=== PATIENT | female | born 1945 | race Hispanic/Latino ===

== ENCOUNTER 2017-12-06 21:48 | Emergency (ER) | payer MEDICARE ==
[~2017-12-06 21:48] MED LIST: CALC600T12 PO; ESOM20CA31 PO; FENO54TA6 PO; GABA-531 PO; HYDR-4068 PO; LISI40TA4 PO; LORA0.5T2 PO; LORA10TA7 PO; LOVA40TA2 PO; MELO-108 PO; OXYB10TA PO; ROPI1TAB11 PO
[2017-12-06] MEDS ORDERED: DIPHENHYDRAMINE HCL 25 MG CAPSULE ONE (22:07)
[2017-12-06] MEDS ORDERED: ACETAMINOPHEN 325 MG TAB ONE (22:07)
== END 2017-12-06 23:55 | disposition home or self-care (01) ==
LOC: EDH 21:48
DX: T80.62XA Other serum reaction due to vaccination, initial encounter (principal); F41.9 Anxiety disorder, unspecified; E78.5 Hyperlipidemia, unspecified; I10 Essential (primary) hypertension; E11.9 Type 2 diabetes mellitus without complications; Z88.0 Allergy status to penicillin; Z90.49 Acquired absence of other specified parts of digestive tract; Y92.89 Other specified places as the place of occurrence of the external cause
CPT/HCPCS: 99283; Q0163

== ENCOUNTER 2017-12-30 18:04 | Inpatient (IN) | payer MEDICARE ==
[~2017-12-30] VITALS: Ht 152.4 cm; Wt 75.1 kg
[2017-12-30 19:25] LABS: BASOPHILS % (AUTO) 0.5 % (0.0-5.0); EOSINOPHILS % (AUTO) 1.7 % (0.0-8.0); LYMPHOCYTES % (AUTO) 27.1 % (21.0-51.0); MEAN CORPUSCULAR HEMOGLOBIN 31.2 pg (27.0-33.0); MEAN CORPUSCULAR HGB CONC 33.3 g/dL (32.0-36.0); MEAN CORPUSCULAR VOLUME 93.6 fL (79-99); NEUTROPHILS % (AUTO) 63.7 % (40.0-77.0); PLATELET COUNT (AUTO) 309 K/uL (130-400); RED BLOOD CELL COUNT(AUTO) 4.16 MIL/uL (4.00-5.50); RED CELL DISTRIBUTION WIDTH 13.5 % (11.0-15.5); WHITE BLOOD COUNT (AUTO) 7.9 K/uL (4.8-10.8)
[2017-12-30 19:40] LABS: CREATININE 0.7 mg/dL (0.5-1.5); POTASSIUM 4.1 mmol/L (3.5-5.1)
[2017-12-30 19:41] LABS: INR 0.95 (0.85-1.15); PARTIAL THROMBOPLASTIN TIME 25.7 SEC (26.3-35.5)
[2017-12-30 19:54] LABS: ALBUMIN 3.9 g/dL (3.5-5.0); BILIRUBIN,TOTAL 0.2 mg/dL (0.2-1.0); TOTAL PROTEIN, SERUM 8.2 g/dL (6.0-8.3)
[2017-12-30] MEDS ORDERED: KETOROLAC TROMETHAMINE 15MG/ML ONE (20:33)
[2017-12-30] MEDS ORDERED: MECLIZINE HCL 25 MG TABLET ONE (21:06)
[2017-12-30 22:10] VITALS: BP 132/85
[2017-12-30] MEDS ORDERED: GLUCAGON 1MG KIT 1 MG ML IM PRN (22:30)
[2017-12-30] MEDS ORDERED: POTASSIUM CHLORIDE 20 MEQ ERTAB PO PRN (22:30)
[2017-12-30] MEDS ORDERED: POTASSIUM CHLORIDE 10% ELIXIR 20 MEQ/15 ML UDCUP PO PRN (22:30)
[2017-12-30] MEDS ORDERED: DEXTROSE 50%-WATER 50 ML DISP.SYRIN IV PRN (22:30)
[2017-12-30] MEDS ORDERED: LIDOCAINE HCL-MPF 1% 2ML VIAL IVP PRN (22:30)
[2017-12-30] MEDS ORDERED: POTASSIUM CHLORIDE 20MEQ/100ML 100 ML IV PRN (22:30)
[2017-12-30] MEDS: SODIUM CHLORIDE 0.9% 1000ML 1,000 ML IV SCH (22:41)
[2017-12-30] MEDS: ENOXAPARIN SODIUM 40 MG/0.4 ML SYRINGE SQ SCH (22:41)
[2017-12-31] VITALS (8 sets, daily range): BP systolic 107–152; BP diastolic 65–98
[2017-12-31] MEDS ORDERED: LORAZEPAM 0.5 MG TABLET ONE (03:09)
[2017-12-31] MEDS ORDERED: LORAZEPAM 0.5 MG TABLET PO PRN (03:15)
[2017-12-31] MEDS ORDERED: HYDROCODONE/ACETAMINOPHEN 10/325 MG TAB ONE (04:40)
[2017-12-31] MEDS: INSULIN HUMULIN R 100 UNIT/ML 3ML SQ SCH ×4 (06:13→21:00)
[2017-12-31 06:44] LABS: BASOPHILS % (AUTO) 0.6 % (0.0-5.0); EOSINOPHILS % (AUTO) 2.4 % (0.0-8.0); HEMATOCRIT 32.6 % (36-48); LYMPHOCYTES % (AUTO) 36.2 % (21.0-51.0); MEAN CORPUSCULAR HEMOGLOBIN 31.3 pg (27.0-33.0); MEAN CORPUSCULAR HGB CONC 33.2 g/dL (32.0-36.0); MEAN CORPUSCULAR VOLUME 94.3 fL (79-99); MONOCYTES % (AUTO) 9.5 % (3.0-13.0); NEUTROPHILS % (AUTO) 51.3 % (40.0-77.0); PLATELET COUNT (AUTO) 247 K/uL (130-400); RED BLOOD CELL COUNT(AUTO) 3.46 MIL/uL (4.00-5.50); RED CELL DISTRIBUTION WIDTH 13.2 % (11.0-15.5); WHITE BLOOD COUNT (AUTO) 7.2 K/uL (4.8-10.8)
[2017-12-31 07:07] LABS: CARBON DIOXIDE 24 mmol/L (21-32); CHLORIDE 108 mmol/L (101-111); CREATINE KINASE MB 0.7 ng/mL (0.5-3.6); CREATINE KINASE, TOTAL 70 U/L (21-232); CREATININE 0.7 mg/dL (0.5-1.5); GLOMERULAR FILTR. RATE CALC 88 mL/min (>60); GLUCOSE,RANDOM 102 mg/dL (70-105); MYOGLOBIN 23 ng/mL (10-92); POTASSIUM 3.5 mmol/L (3.5-5.1); SODIUM SERUM 141 mmol/L (136-145); TROPONIN I < 0.04 ng/mL (0.00-0.06); UREA NITROGEN, BLOOD 15 mg/dL (7-18)
[2017-12-31] MEDS: FENOFIBRATE 54 MG PO SCH (09:00)
[2017-12-31] MEDS: CALCIUM 600 + VITAMIN D 400 TABLET PO SCH ×2 (09:00→21:08)
[2017-12-31] MEDS: ATORVASTATIN CALCIUM 20 MG TABLET PO SCH (12:28)
[2017-12-31] MEDS: HYDROCODONE/ACETAMINOPHEN 10/325 MG TAB PO PRN ×2 (12:28→21:09)
[2017-12-31] MEDS: LISINOPRIL 40 MG TABLET PO SCH (12:29)
[2017-12-31] MEDS: MELOXICAM 7.5 MG TABLET PO SCH (12:29)
[2017-12-31] MEDS: OXYBUTYNIN 5 MG TAB.SR.24H PO SCH (12:29)
[2017-12-31] MEDS: LORATADINE 10 MG TABLET PO SCH (12:29)
[2017-12-31] MEDS: MECLIZINE HCL 25 MG TABLET PO SCH (12:30)
[2017-12-31] MEDS: FAMOTIDINE 20MG TAB 20 MG TAB PO SCH (12:30)
[2017-12-31] MEDS: ENOXAPARIN SODIUM 40 MG/0.4 ML SYRINGE SQ SCH (12:32)
[2017-12-31] MEDS: SODIUM CHLORIDE 0.9% 1000ML 1,000 ML IV SCH (12:37)
[2017-12-31] MEDS: ROPINIROLE HCL 1 MG TABLET PO SCH ×3 (12:37→21:09)
[2017-12-31] MEDS: GABAPENTIN 300 MG CAPSULE PO SCH ×3 (12:40→21:09)
[2017-12-31 16:23] LABS: APPEARANCE,URINE Clear (CLEAR); BILIRUBIN,URINE Negative (NEGATIVE); COLOR,URINE Yellow (YELLOW); GLUCOSE, URINE (UA) Negative (NEGATIVE); KETONES,URINE Negative (NEGATIVE); LEUKOCYTE ESTERASE ,URINE Negative (NEGATIVE); NITRATE,URINE Negative (NEGATIVE); OCCULT BLOOD,URINE Small (NEGATIVE); PH,URINE 5.5 (5.0-8.0); PROTEIN,URINE Negative (NEGATIVE); UROBILINOGEN,URINE 0.2 mg/dL (0.2-1.0)
[2017-12-31 16:36] LABS: BACTERIA,URINE Rare /HPF (None Seen); SQUAMOUS EPITHELIAL CELL,UR Rare /HPF (0-2); WBC,URINE 0-1 /HPF (0-1)
[2018-01-01] VITALS (7 sets, daily range): BP systolic 113–151; BP diastolic 69–92
[2018-01-01 04:14] LABS: HEMATOCRIT 31.8 % (36-48); MEAN CORPUSCULAR HEMOGLOBIN 32.2 pg (27.0-33.0); MEAN CORPUSCULAR HGB CONC 34.1 g/dL (32.0-36.0); MEAN CORPUSCULAR VOLUME 94.4 fL (79-99); PLATELET COUNT (AUTO) 234 K/uL (130-400); RED BLOOD CELL COUNT(AUTO) 3.37 MIL/uL (4.00-5.50); RED CELL DISTRIBUTION WIDTH 13.1 % (11.0-15.5); WHITE BLOOD COUNT (AUTO) 5.3 K/uL (4.8-10.8)
[2018-01-01] MEDS: INSULIN HUMULIN R 100 UNIT/ML 3ML SQ SCH ×2 (06:08→11:30)
[2018-01-01] MEDS: FENOFIBRATE 54 MG PO SCH (09:00)
[2018-01-01] MEDS ORDERED: BISACODYL 10 MG SUPP.RECT RC SCH (09:15)
[2018-01-01] MEDS: ATORVASTATIN CALCIUM 20 MG TABLET PO SCH (11:35)
[2018-01-01] MEDS: LORATADINE 10 MG TABLET PO SCH (11:35)
[2018-01-01] MEDS: MECLIZINE HCL 25 MG TABLET PO SCH (11:35)
[2018-01-01] MEDS: CALCIUM 600 + VITAMIN D 400 TABLET PO SCH (11:35)
[2018-01-01] MEDS: MELOXICAM 7.5 MG TABLET PO SCH (11:36)
[2018-01-01] MEDS: ROPINIROLE HCL 1 MG TABLET PO SCH ×2 (11:36→13:59)
[2018-01-01] MEDS: LISINOPRIL 40 MG TABLET PO SCH (11:38)
[2018-01-01] MEDS: GABAPENTIN 300 MG CAPSULE PO SCH ×2 (11:39→13:58)
[2018-01-01] MEDS: FAMOTIDINE 20MG TAB 20 MG TAB PO SCH (11:43)
[2018-01-01] MEDS: OXYBUTYNIN 5 MG TAB.SR.24H PO SCH (11:44)
[2018-01-01] MEDS: ENOXAPARIN SODIUM 40 MG/0.4 ML SYRINGE SQ SCH (11:46)
[2018-01-01] MEDS: HYDROCODONE/ACETAMINOPHEN 10/325 MG TAB PO PRN (13:59)
[2018-01-07] MEDS ORDERED: INSULIN HUMULIN R 100 UNIT/ML 3ML ONE (23:38)
[2018-01-07] MEDS ORDERED: DEXTROSE 5%-LACTATED RINGERS 1,000 ML IV ONE (23:38)
[2018-01-08] MEDS ORDERED: DEXTROSE 5%-LACTATED RINGERS 1,000 ML IV ONE (05:46)
== END 2018-01-01 15:30 | disposition home or self-care (01) | DRG 312 ==
LOC: EDH 18:04 → OBSVTOIN 21:05 → EDHIP 21:05 → 3AH 22:25
PROVIDERS: ADMIT Family Medicine; ATTEND Family Medicine
DX: R55 Syncope and collapse (principal); S52.512A Displaced fracture of left radial styloid process, initial encounter for closed fracture; W19.XXXA Unspecified fall, initial encounter; Y92.000 Kitchen of unspecified non-institutional (private) residence as the place of occurrence of the external cause; Z91.81 History of falling; I10 Essential (primary) hypertension; E11.9 Type 2 diabetes mellitus without complications; E78.5 Hyperlipidemia, unspecified; F41.9 Anxiety disorder, unspecified; Z82.49 Family history of ischemic heart disease and other diseases of the circulatory system; I70.0 Atherosclerosis of aorta; R00.2 Palpitations; R01.1 Cardiac murmur, unspecified
CPT/HCPCS: 36415; 70450; 73030; 73110; 80048; 80053; 81001; 82270; 82550; 82553; 82948; 83874; 84484; 85025; 85027; 85610; 85730; 93005; 93306; J1650; J1815; J1885; J3490; J7030

== ENCOUNTER 2018-08-03 15:23 | Emergency (ER) | payer MEDICARE ==
[2018-08-03] MEDS ORDERED: SODIUM CHLORIDE 0.9% 100 ML IV ONE (16:03)
[2018-08-03] MEDS ORDERED: ONDANSETRON HCL 4 MG/2 ML VIAL ONE (16:03)
[2018-08-03] MEDS ORDERED: SODIUM CHLORIDE 0.9% 1000ML 1,000 ML IV ONE (16:03)
[2018-08-03 16:07] LABS: BASOPHILS % (AUTO) 0.9 % (0.0-5.0); EOSINOPHILS % (AUTO) 1.1 % (0.0-8.0); HEMATOCRIT 33.3 % (36-48); LYMPHOCYTES % (AUTO) 42.7 % (21.0-51.0); MEAN CORPUSCULAR HEMOGLOBIN 32.3 pg (27.0-33.0); MEAN CORPUSCULAR HGB CONC 33.7 g/dL (32.0-36.0); MEAN CORPUSCULAR VOLUME 95.7 fL (79-99); MONOCYTES % (AUTO) 6.7 % (3.0-13.0); NEUTROPHILS % (AUTO) 48.6 % (40.0-77.0); PLATELET COUNT (AUTO) 309 K/uL (130-400); RED BLOOD CELL COUNT(AUTO) 3.48 MIL/uL (4.00-5.50); RED CELL DISTRIBUTION WIDTH 13.6 % (11.0-15.5); WHITE BLOOD COUNT (AUTO) 6.7 K/uL (4.8-10.8)
[2018-08-03 16:18] LABS: INR 1.01 (0.85-1.15); PARTIAL THROMBOPLASTIN TIME 22.3 SEC (26.3-35.5); PROTHROMBIN TIME 10.6 SEC (9.6-11.6)
[2018-08-03 16:21] LABS: CARBON DIOXIDE 25 mmol/L (21-32); CHLORIDE 105 mmol/L (101-111); CREATININE 0.8 mg/dL (0.5-1.5); GLOMERULAR FILTR. RATE CALC 75 mL/min (>60); GLUCOSE,RANDOM 122 mg/dL (70-105); POTASSIUM 3.8 mmol/L (3.5-5.1); SODIUM SERUM 141 mmol/L (136-145); UREA NITROGEN, BLOOD 13 mg/dL (7-18)
[2018-08-03 16:25] LABS: ALANINE AMINOTRANSFERASE 24 U/L (12-78); ALBUMIN 3.4 g/dL (3.5-5.0); ASPARTATE AMINOTRANSFERASE 19 U/L (10-37); BILIRUBIN,DIRECT < 0.1 mg/dL (0.0-0.3); BILIRUBIN,TOTAL 0.3 mg/dL (0.2-1.0); CREATINE KINASE, TOTAL 65 U/L (21-232)
[2018-08-03 16:38] LABS: B-TYPE NATRIURETIC PEPTIDE 9 pg/mL (0-100)
[2018-08-03 18:43] LABS: APPEARANCE,URINE Clear (CLEAR); BILIRUBIN,URINE Negative (NEGATIVE); COLOR,URINE Yellow (YELLOW); GLUCOSE, URINE (UA) Negative (NEGATIVE); KETONES,URINE Negative (NEGATIVE); LEUKOCYTE ESTERASE ,URINE Negative (NEGATIVE); NITRATE,URINE Negative (NEGATIVE); OCCULT BLOOD,URINE Trace (NEGATIVE); PH,URINE 5.5 (5.0-8.0); PROTEIN,URINE Negative (NEGATIVE); UROBILINOGEN,URINE 0.2 mg/dL (0.2-1.0)
[2018-08-03 19:10] LABS: BACTERIA,URINE None Seen /HPF (None Seen); RBC,URINE 0-1 /HPF (0-1); WBC,URINE None Seen /HPF (0-1)
== END 2018-08-03 19:11 | disposition home or self-care (01) ==
LOC: EDH 15:23
DX: K52.9 Noninfective gastroenteritis and colitis, unspecified (principal); E86.0 Dehydration; B34.9 Viral infection, unspecified; R05 Cough; E11.9 Type 2 diabetes mellitus without complications; E78.5 Hyperlipidemia, unspecified; I10 Essential (primary) hypertension; F41.9 Anxiety disorder, unspecified; Z88.0 Allergy status to penicillin; Z90.49 Acquired absence of other specified parts of digestive tract
CPT/HCPCS: 36415; 71045; 80048; 80076; 81001; 82550; 83605; 83880; 84484; 85025; 85610; 85730; 87040 ×2; 87804 ×2; 93005; 96361; 96374; 96375; 99284; J2405; J7030

== ENCOUNTER 2019-04-16 18:00 | Emergency (ER) | payer MEDICARE ==
[~2019-04-16 18:00] MED LIST changes: -OXYB10TA PO; +OXYB10TA2 PO
[2019-04-16] MEDS ORDERED: MORPHINE SULFATE 2 MG/ML 1ML SYG ONE (18:46)
[2019-04-16] MEDS ORDERED: ONDANSETRON HCL 4 MG/2 ML VIAL ONE (18:46)
[2019-04-16] MEDS ORDERED: HYDROCODONE/ACETAMINOPHEN 10/325 MG TAB ONE (20:46)
== END 2019-04-16 21:10 | disposition home or self-care (01) ==
LOC: EDH 18:00
DX: S39.92XA Unspecified injury of lower back, initial encounter (principal); S29.9XXA Unspecified injury of thorax, initial encounter; M54.5 Low back pain; M85.80 Other specified disorders of bone density and structure, unspecified site; F41.9 Anxiety disorder, unspecified; E11.9 Type 2 diabetes mellitus without complications; E78.5 Hyperlipidemia, unspecified; I10 Essential (primary) hypertension; Z90.49 Acquired absence of other specified parts of digestive tract; Z98.890 Other specified postprocedural states; Z88.0 Allergy status to penicillin; W17.89XA Other fall from one level to another, initial encounter; Y93.89 Activity, other specified; Y92.89 Other specified places as the place of occurrence of the external cause; Y99.8 Other external cause status
CPT/HCPCS: 72128; 72131; 72192; 96374; 96375; 99284; J2405

== ENCOUNTER 2021-05-30 23:50 | Emergency (ER) | payer MEDICARE ==
[~2021-05-30] VITALS: Ht 152.4 cm; Wt 70.3 kg
[~2021-05-30 23:50] MED LIST changes: +CALC-1125 PO; -CALC600T12 PO; -LISI40TA4 PO; +LISI40TA9 PO; -OXYB10TA2 PO; +OXYB10TA30 PO; -ROPI1TAB11 PO; +ROPI1TAB13 PO
[2021-05-31] MEDS ORDERED: ONDANSETRON 4MG INJ IVP ONE (00:30)
[2021-05-31] MEDS ORDERED: MORPHINE 2 MG SYG IVP ONE (00:30)
[2021-05-31] MEDS ORDERED: 0.9%NACL 1000ML 1,000 ML IV ONE ×2 (00:30→00:34)
[2021-05-31] MEDS ORDERED: ONDANSETRON 4MG INJ ONE (00:31)
[2021-05-31] MEDS ORDERED: MORPHINE 2 MG SYG ONE (00:32)
[2021-05-31 00:39] LABS: BASOPHILS % (AUTO) 0.3 % (0.0-5.0); EOSINOPHILS % (AUTO) 0.3 % (0.0-8.0); HEMATOCRIT 37.5 % (36-48); LYMPHOCYTES % (AUTO) 16.3 % (21.0-51.0); MEAN CORPUSCULAR HEMOGLOBIN 32.4 pg (27.0-33.0); MEAN CORPUSCULAR HGB CONC 33.9 g/dL (32.0-36.0); MEAN CORPUSCULAR VOLUME 95.7 fL (79-99); NEUTROPHILS % (AUTO) 71.8 % (40.0-77.0); PLATELET COUNT (AUTO) 356 K/uL (130-400); RED BLOOD CELL COUNT(AUTO) 3.92 MIL/uL (4.00-5.50); RED CELL DISTRIBUTION WIDTH 12.8 % (11.0-15.5); WHITE BLOOD COUNT (AUTO) 7.8 K/uL (4.8-10.8)
[2021-05-31 01:29] LABS: POTASSIUM 3.6 mmol/L (3.5-5.1)
[2021-05-31 01:33] LABS: ALBUMIN 3.4 g/dL (3.5-5.0); BILIRUBIN,TOTAL 0.3 mg/dL (0.2-1.0); TOTAL PROTEIN, SERUM 7.4 g/dL (6.0-8.3)
[2021-05-31 03:11] LABS: APPEARANCE,URINE Clear (CLEAR); BILIRUBIN,URINE Negative (NEGATIVE); COLOR,URINE Yellow (YELLOW); GLUCOSE, URINE (UA) Negative (NEGATIVE); KETONES,URINE Trace mg/dL (NEGATIVE); LEUKOCYTE ESTERASE ,URINE Trace (NEGATIVE); NITRATE,URINE Positive (NEGATIVE); OCCULT BLOOD,URINE Moderate (NEGATIVE); PH,URINE 5.5 (5.0-8.0); PROTEIN,URINE Negative (NEGATIVE); UROBILINOGEN,URINE 0.2 mg/dL (0.2-1.0)
[2021-05-31] MEDS ORDERED: CEFTRIAXONE 1G VIAL IVP ONE (03:30)
[2021-05-31 03:35] LABS: BACTERIA,URINE Many /HPF (None Seen); SQUAMOUS EPITHELIAL CELL,UR 0-2 /HPF (0-2)
[2021-05-31] MEDS ORDERED: PHARMACY COMMUNICATION MISC SCH (04:00)
[2021-05-31] MEDS ORDERED: CEPH500B PO (04:05)
[2021-05-31] MEDS ORDERED: [UNRECOGNIZED DRUG - CODE] PO (04:05)
[2021-05-31 04:37] VITALS: BP 110/65
== END 2021-05-31 05:14 | disposition home or self-care (01) ==
LOC: EDH 23:50
DX: N39.0 Urinary tract infection, site not specified (principal); R19.7 Diarrhea, unspecified; I10 Essential (primary) hypertension; E11.9 Type 2 diabetes mellitus without complications; Z88.0 Allergy status to penicillin; Z79.899 Other long term (current) drug therapy; Z88.7 Allergy status to serum and vaccine
CPT/HCPCS: 36415; 80053; 81001; 83690; 84145; 84484; 85025; 87077; 87088; 87186; 93005; 96361; 96374; 96375; 99284; J2405; J7030; J0696

== ENCOUNTER → 2022-03-31 | Outpatient (CLI) | payer OTHER, MEDICARE ==
[~2022-03-31] MED LIST changes: +CEPH500B PO; +[UNRECOGNIZED DRUG - CODE] PO
== END | disposition home or self-care (01) ==
LOC: SHCH 13:56
PROVIDERS: ATTEND Internal Medicine Cardiovascular Disease
DX: I35.0 Nonrheumatic aortic (valve) stenosis (principal); E11.9 Type 2 diabetes mellitus without complications; E78.5 Hyperlipidemia, unspecified; I10 Essential (primary) hypertension
CPT/HCPCS: 93306

== ENCOUNTER → 2022-05-24 | Outpatient (CLI) | payer OTHER, MEDICARE ==
[~2022-05-24] MED LIST changes: +REGADENOSON 0.4 MG/5 ML PF SYG IVP SCH
== END | disposition home or self-care (01) ==
LOC: RAH 08:45
PROVIDERS: ATTEND Internal Medicine
DX: R07.9 Chest pain, unspecified (principal); R09.89 Other specified symptoms and signs involving the circulatory and respiratory systems
CPT/HCPCS: 78452; 96374; 93017; J2785; A9500 ×2

== ENCOUNTER → 2022-05-30 | Outpatient (CLI) | payer OTHER, MEDICARE ==
[~2022-05-30] MED LIST changes: -REGADENOSON 0.4 MG/5 ML PF SYG IVP SCH
== END | disposition home or self-care (01) ==
LOC: SHCH 08:37
PROVIDERS: ATTEND Internal Medicine
DX: I65.23 Occlusion and stenosis of bilateral carotid arteries (principal); R09.89 Other specified symptoms and signs involving the circulatory and respiratory systems; R07.9 Chest pain, unspecified
CPT/HCPCS: 93880

== ENCOUNTER 2022-06-11 13:10 | Emergency (ER) | payer MEDICARE ==
[~2022-06-11] VITALS: Ht 154.9 cm; Wt 66.7 kg
[2022-06-11 18:01] LABS: APPEARANCE,URINE CLEAR (CLEAR); BILIRUBIN,URINE NEGATIVE (NEGATIVE); COLOR,URINE YELLOW (YELLOW); GLUCOSE, URINE (UA) NEGATIVE (NEGATIVE); KETONES,URINE NEGATIVE (NEGATIVE); LEUKOCYTE ESTERASE ,URINE NEGATIVE Leu/uL (NEGATIVE); NITRATE,URINE NEGATIVE (NEGATIVE); OCCULT BLOOD,URINE SMALL (NEGATIVE); PROTEIN,URINE 20 mg/dL (NEGATIVE); UROBILINOGEN,URINE 0.2 mg/dL (0.2-1.0)
[2022-06-11 18:23] LABS: MUCUS,URINE FEW LPF (None Seen); SQUAMOUS EPITHELIAL CELL,UR RARE /HPF (0-2); WBC,URINE 0-1 /HPF (0-1)
[2022-06-11 19:53] LABS: BASOPHILS % (AUTO) 0.5 % (0.0-5.0); EOSINOPHILS % (AUTO) 0.9 % (0.0-8.0); HEMATOCRIT 33.7 % (36-48); MEAN CORPUSCULAR HGB CONC 32.3 g/dL (32.0-36.0); MEAN CORPUSCULAR VOLUME 92.8 fL (79-99); MONOCYTES % (AUTO) 6.5 % (3.0-13.0); NEUTROPHILS % (AUTO) 60.8 % (40.0-77.0); PLATELET COUNT (AUTO) 268 K/uL (130-400); RED BLOOD CELL COUNT(AUTO) 3.63 MIL/uL (4.00-5.50); RED CELL DISTRIBUTION WIDTH 13.1 % (11.0-15.5); WHITE BLOOD COUNT (AUTO) 6.5 K/uL (4.8-10.8)
[2022-06-11 20:09] LABS: ALBUMIN 3.8 g/dL (3.5-5.0); CREATININE 0.7 mg/dL (0.5-1.5); TOTAL PROTEIN, SERUM 7.5 g/dL (6.0-8.3)
[2022-06-11] MEDS ORDERED: POTASSIUM BICARB/CIT AC 25 MEQ TABLET.EFF ONE (21:00)
[2022-06-11 21:23] VITALS: BP 128/72
[2022-06-11] MEDS ORDERED: POTASSIUM BICARB/CIT AC 25 MEQ TABLET.EFF PO ONE (21:30)
[2022-06-11] MEDS ORDERED: LOPERAMIDE 1 MG/7.5 ML UDCUP PO STA (23:34)
[2022-06-11] MEDS ORDERED: LOPE2CAP PO (23:39)
[2022-06-11] MEDS ORDERED: ONDA4TAB10 PO (23:39)
[2022-06-11] MEDS ORDERED: LOPERAMIDE HCL 2 MG CAP PO ONE (23:42)
== END 2022-06-11 23:58 | disposition home or self-care (01) ==
LOC: EDH 13:10
DX: R19.7 Diarrhea, unspecified (principal); E11.9 Type 2 diabetes mellitus without complications; I10 Essential (primary) hypertension; Z90.710 Acquired absence of both cervix and uterus; Z90.89 Acquired absence of other organs; Z88.0 Allergy status to penicillin; Z88.8 Allergy status to other drugs, medicaments and biological substances; Z79.899 Other long term (current) drug therapy
CPT/HCPCS: 36415; 74176; 80053; 81001; 85025

== ENCOUNTER 2022-09-08 12:52 | Inpatient (IN) | payer MEDICARE ==
[~2022-09-08] VITALS: Ht 152.4 cm; Wt 65.1 kg
[~2022-09-08 12:52] MED LIST changes: +LOPE2CAP PO; +ONDA4TAB10 PO
[2022-09-08 13:14] LABS: BASOPHILS % (AUTO) 0.4 % (0.0-5.0); EOSINOPHILS % (AUTO) 0.6 % (0.0-8.0); LYMPHOCYTES % (AUTO) 32.8 % (21.0-51.0); MEAN CORPUSCULAR HEMOGLOBIN 30.4 pg (27.0-33.0); MEAN CORPUSCULAR HGB CONC 31.7 g/dL (32.0-36.0); MEAN CORPUSCULAR VOLUME 96.1 fL (79-99); NEUTROPHILS % (AUTO) 59.9 % (40.0-77.0); PLATELET COUNT (AUTO) 274 K/uL (130-400); RED BLOOD CELL COUNT(AUTO) 2.07 MIL/uL (4.00-5.50); RED CELL DISTRIBUTION WIDTH 14.8 % (11.0-15.5); WHITE BLOOD COUNT (AUTO) 7.2 K/uL (4.8-10.8)
[2022-09-08 13:32] LABS: ALBUMIN 3.4 g/dL (3.5-5.0); TOTAL PROTEIN, SERUM 6.4 g/dL (6.0-8.3)
[2022-09-08 13:34] LABS: HEMATOCRIT 19.9 % (36-48)
[2022-09-08] MEDS ORDERED: HYDRALAZINE 20MG/ML VIAL IV PRN (16:30)
[2022-09-08] MEDS: INSULIN HUMULIN R 100 UNIT/ML 3ML SQ SCH ×2 (16:30→20:29)
[2022-09-08] MEDS ORDERED: ACETAMINOPHEN 325 MG TAB PO PRN (16:30)
[2022-09-08] MEDS ORDERED: LACTULOSE 20 GM/30 ML UDCUP PO PRN (16:30)
[2022-09-08] MEDS ORDERED: LABETALOL 20MG SYG IV PRN (16:30)
[2022-09-08 16:41] LABS: APPEARANCE,URINE CLEAR (CLEAR); BILIRUBIN,URINE NEGATIVE (NEGATIVE); COLOR,URINE LIGHT-YELLOW (YELLOW); GLUCOSE, URINE (UA) NEGATIVE (NEGATIVE); KETONES,URINE NEGATIVE (NEGATIVE); LEUKOCYTE ESTERASE ,URINE NEGATIVE Leu/uL (NEGATIVE); NITRATE,URINE NEGATIVE (NEGATIVE); PROTEIN,URINE NEGATIVE (NEGATIVE); UROBILINOGEN,URINE 0.2 mg/dL (0.2-1.0)
[2022-09-08 16:49] LABS: BACTERIA,URINE RARE /HPF (None Seen); MUCUS,URINE RARE LPF (None Seen); SQUAMOUS EPITHELIAL CELL,UR RARE /HPF (0-2); WBC,URINE 0-1 /HPF (0-1)
[2022-09-08] MEDS: LACTATED RINGERS 1000ML 1,000 ML IV SCH (18:55)
[2022-09-08] MEDS: IPRATROPIUM/ALBUTEROL SULFATE 3 ML SOLUTION IH SCH (18:59)
[2022-09-08] MEDS ORDERED: KCL 20 MEQ ERTAB PO ONE (19:00)
[2022-09-08] MEDS: PANTOPRAZOLE 40 MG/VIAL IVP SCH (20:29)
[2022-09-08] MEDS ORDERED: BUSP30TA2 PO (21:11)
[2022-09-08 21:18] VITALS: BP 105/45
[2022-09-08 22:28] LABS: HEMATOCRIT 23.2 % (36-48)
[2022-09-08 23:30] VITALS: BP 110/58
[2022-09-09] MEDS ORDERED: IOHEXOL-350 75 ML VIAL IV ONE (02:04)
[2022-09-09] MEDS: IPRATROPIUM/ALBUTEROL SULFATE 3 ML SOLUTION IH SCH ×2 (02:59→07:07)
[2022-09-09 04:11] VITALS: BP 101/49
[2022-09-09 06:20] LABS: BASOPHILS % (AUTO) 0.4 % (0.0-5.0); HEMATOCRIT 23.5 % (36-48); LYMPHOCYTES % (AUTO) 35.8 % (21.0-51.0); MEAN CORPUSCULAR HGB CONC 31.9 g/dL (32.0-36.0); MONOCYTES % (AUTO) 8.5 % (3.0-13.0); NEUTROPHILS % (AUTO) 53.9 % (40.0-77.0); PLATELET COUNT (AUTO) 252 K/uL (130-400); RED CELL DISTRIBUTION WIDTH 16.8 % (11.0-15.5); WHITE BLOOD COUNT (AUTO) 6.8 K/uL (4.8-10.8)
[2022-09-09 06:53] LABS: B-TYPE NATRIURETIC PEPTIDE 22 pg/mL (0-100)
[2022-09-09 07:00] LABS: CREATININE 0.7 mg/dL (0.5-1.5); MAGNESIUM 1.5 mg/dL (1.80-2.40); PHOSPHORUS 3.5 mg/dL (2.5-4.9); POTASSIUM 3.2 mmol/L (3.5-5.1); THYROID STIMULATING HORMONE 0.94 uIU/mL (0.36-3.74)
[2022-09-09 07:14] LABS: % IRON SATURATION 11.9 % (22-44)
[2022-09-09] MEDS: INSULIN HUMULIN R 100 UNIT/ML 3ML SQ SCH ×4 (07:30→21:00)
[2022-09-09 07:53] VITALS: BP 108/59
[2022-09-09] MEDS ORDERED: POTASSIUM CHLORIDE 10% ELIXIR 20 MEQ/15 ML UDCUP PO PRN (08:00)
[2022-09-09] MEDS ORDERED: MAGNESIUM 2GM PREMIX 50ML 50 ML IV PRN ×2 (08:00→11:00)
[2022-09-09] MEDS ORDERED: KCL 20 MEQ ERTAB PO PRN (08:00)
[2022-09-09] MEDS ORDERED: DEXTROSE 50%-WATER 50 ML DISP.SYRIN IV PRN (08:00)
[2022-09-09] MEDS ORDERED: POTASSIUM CHLORIDE 20MEQ/100ML 100 ML IV PRN (08:00)
[2022-09-09] MEDS ORDERED: IPRATROPIUM/ALBUTEROL SULFATE 3 ML SOLUTION IH PRN (08:00)
[2022-09-09] MEDS ORDERED: GLUCAGON 1MG KIT 1 MG ML IM PRN (08:00)
[2022-09-09] MEDS ORDERED: LIDOCAINE HCL-MPF 1% 2ML VIAL IV PRN (08:00)
[2022-09-09] MEDS: PANTOPRAZOLE 40 MG/VIAL IVP SCH ×2 (08:18→21:47)
[2022-09-09] MEDS: HYDROCODONE/ACETAMINOPHEN 5/325 MG TAB PO PRN ×2 (08:24→14:54)
[2022-09-09] MEDS: LACTATED RINGERS 1000ML 1,000 ML IV SCH ×2 (09:59→20:40)
[2022-09-09 11:36] VITALS: BP 91/56
[2022-09-09 12:09] LABS: HEMATOCRIT 22.9 % (36-48)
[2022-09-09 16:00] VITALS: BP 110/58
[2022-09-09] MEDS ORDERED: GABA-529 PO (18:05)
[2022-09-09] MEDS ORDERED: MEMA5TAB42 PO (18:05)
[2022-09-09] MEDS ORDERED: ATOR40TA71 PO (18:05)
[2022-09-09] MEDS ORDERED: METF-526 PO (18:05)
[2022-09-09] MEDS ORDERED: ROPI1TAB13 PO (18:05)
[2022-09-09] MEDS ORDERED: ALEN70TA80 PO (18:05)
[2022-09-09] MEDS ORDERED: AMLO-258 PO (18:05)
[2022-09-09] MEDS ORDERED: IRON1CAP28 PO (18:05)
[2022-09-09] MEDS ORDERED: OMEP20CA12 PO (18:05)
[2022-09-09] MEDS ORDERED: MONT-39 PO (18:05)
[2022-09-09 20:14] VITALS: BP 96/47
[2022-09-09] MEDS: HYDROCODONE/ACETAMINOPHEN 10/325 MG TAB PO PRN (21:44)
[2022-09-09] MEDS: BUSPIRONE HCL 5 MG TABLET PO SCH (21:47)
[2022-09-09] MEDS: ROPINIROLE HCL 1 MG TABLET PO SCH (21:47)
[2022-09-09] MEDS: OCTREOTIDE ACETATE 1,250 MCG in 0.9% NACL 250ML 250 ML IV SCH (21:49)
[2022-09-09 23:32] VITALS: BP 106/54
[2022-09-10] VITALS (25 sets, daily range): BP systolic 90–145; BP diastolic 47–71
[2022-09-10] MEDS: HYDROCODONE/ACETAMINOPHEN 5/325 MG TAB PO PRN (01:41)
[2022-09-10 06:05] LABS: HEMATOCRIT 24.2 % (36-48); MEAN CORPUSCULAR HEMOGLOBIN 30.6 pg (27.0-33.0); MEAN CORPUSCULAR HGB CONC 31.8 g/dL (32.0-36.0); RED BLOOD CELL COUNT(AUTO) 2.52 MIL/uL (4.00-5.50); RED CELL DISTRIBUTION WIDTH 16.8 % (11.0-15.5); WHITE BLOOD COUNT (AUTO) 5.2 K/uL (4.8-10.8)
[2022-09-10] MEDS: INSULIN HUMULIN R 100 UNIT/ML 3ML SQ SCH ×4 (06:07→20:36)
[2022-09-10 06:20] LABS: CREATININE 0.6 mg/dL (0.5-1.5); MAGNESIUM 2.5 mg/dL (1.80-2.40)
[2022-09-10] MEDS: PANTOPRAZOLE 40 MG/VIAL IVP SCH (08:57)
[2022-09-10] MEDS: OCTREOTIDE ACETATE 1,250 MCG in 0.9% NACL 250ML 250 ML IV SCH (08:58)
[2022-09-10] MEDS: IRON FUM PO SCH (09:00)
[2022-09-10] MEDS: [UNRECOGNIZED DRUG - OTHER] PO SCH (09:00)
[2022-09-10] MEDS: VIT B PO SCH (09:00)
[2022-09-10] MEDS: AMLODIPINE 5 MG TAB PO SCH (09:00)
[2022-09-10] MEDS: LISINOPRIL 40 MG TABLET PO SCH (09:00)
[2022-09-10] MEDS ORDERED: PANTOPRAZOLE 40 MG TAB DR PO SCH (09:00)
[2022-09-10] MEDS: C NO 9 PO SCH (09:00)
[2022-09-10] MEDS ORDERED: PROPOFOL 10 MG/ML 20ML VIAL IV ONE (09:12)
[2022-09-10] MEDS: LACTATED RINGERS 1000ML 1,000 ML IV SCH (10:00)
[2022-09-10] MEDS: METFORMIN HCL 500 MG TAB.SR.24H PO SCH (12:16)
[2022-09-10] MEDS: ROPINIROLE HCL 1 MG TABLET PO SCH ×2 (12:59→21:50)
[2022-09-10] MEDS: BUSPIRONE HCL 5 MG TABLET PO SCH ×2 (13:00→21:50)
[2022-09-10] MEDS: GABAPENTIN 100 MG CAPSULE PO SCH (13:00)
[2022-09-10] MEDS: ATORVASTATIN 40 MG TABLET PO SCH (13:00)
[2022-09-10] MEDS: MONTELUKAST SODIUM 10 MG TAB PO SCH (13:00)
[2022-09-10] MEDS: HYDROCODONE/ACETAMINOPHEN 10/325 MG TAB PO PRN ×2 (13:59→23:46)
[2022-09-10] MEDS: PANTOPRAZOLE 40 MG TAB DR PO SCH (21:50)
[2022-09-10] MEDS: ONDANSETRON 4MG INJ IVP PRN (21:54)
[2022-09-11 03:51] VITALS: BP 129/65
[2022-09-11 05:37] LABS: HEMATOCRIT 25.6 % (36-48); MEAN CORPUSCULAR HEMOGLOBIN 30.3 pg (27.0-33.0); MEAN CORPUSCULAR HGB CONC 31.6 g/dL (32.0-36.0); MEAN CORPUSCULAR VOLUME 95.9 fL (79-99); RED BLOOD CELL COUNT(AUTO) 2.67 MIL/uL (4.00-5.50); RED CELL DISTRIBUTION WIDTH 16.3 % (11.0-15.5); WHITE BLOOD COUNT (AUTO) 6.2 K/uL (4.8-10.8)
[2022-09-11 05:56] LABS: CREATININE 0.6 mg/dL (0.5-1.5); MAGNESIUM 1.9 mg/dL (1.80-2.40); PHOSPHORUS 2.7 mg/dL (2.5-4.9); POTASSIUM 4.3 mmol/L (3.5-5.1)
[2022-09-11] MEDS: INSULIN HUMULIN R 100 UNIT/ML 3ML SQ SCH ×2 (07:30→11:30)
[2022-09-11 08:00] VITALS: BP 135/71
[2022-09-11] MEDS: METFORMIN HCL 500 MG TAB.SR.24H PO SCH (08:46)
[2022-09-11] MEDS: LISINOPRIL 40 MG TABLET PO SCH (08:47)
[2022-09-11] MEDS: MONTELUKAST SODIUM 10 MG TAB PO SCH (08:47)
[2022-09-11] MEDS: GABAPENTIN 100 MG CAPSULE PO SCH (08:47)
[2022-09-11] MEDS: ROPINIROLE HCL 1 MG TABLET PO SCH (08:47)
[2022-09-11] MEDS: AMLODIPINE 5 MG TAB PO SCH (08:47)
[2022-09-11] MEDS: ATORVASTATIN 40 MG TABLET PO SCH (08:47)
[2022-09-11] MEDS: PANTOPRAZOLE 40 MG TAB DR PO SCH (08:47)
[2022-09-11] MEDS: BUSPIRONE HCL 5 MG TABLET PO SCH (08:48)
[2022-09-11] MEDS: [UNRECOGNIZED DRUG - OTHER] PO SCH (08:49)
[2022-09-11] MEDS: C NO 9 PO SCH (08:49)
[2022-09-11] MEDS: IRON FUM PO SCH (08:49)
[2022-09-11] MEDS: VIT B PO SCH (08:49)
[2022-09-11] MEDS: HYDROCODONE/ACETAMINOPHEN 10/325 MG TAB PO PRN (08:51)
[2022-09-11] MEDS: ONDANSETRON 4MG INJ IVP PRN (10:40)
[2022-09-11 11:23] VITALS: BP 111/55
[2022-09-11] MEDS ORDERED: ONDA4TAB10 PO (12:05)
[2022-09-11] MEDS ORDERED: PANT40TA55 PO (12:05)
[2022-09-11 15:25] VITALS: BP 113/66
[2022-09-16] MEDS ORDERED: ALENDRONATE SODIUM 35 MG TAB PO SCH (09:00)
== END 2022-09-11 15:05 | disposition home or self-care (01) | DRG 374 ==
LOC: EDH 12:52 → EDHIP 16:16 → OBSVTOIN 16:16 → 3AH 20:55
PROVIDERS: ADMIT Internal Medicine; ATTEND Internal Medicine
PROC: 30233N1 Transfusion of Nonautologous Red Blood Cells into Peripheral Vein, Percutaneous Approach (ICD-10-PCS; principal; 2022-09-08)
PROC: 0DB78ZX Excision of Stomach, Pylorus, Via Natural or Artificial Opening Endoscopic, Diagnostic (ICD-10-PCS; 2022-09-10)
DX: D49.0 Neoplasm of unspecified behavior of digestive system (principal); K25.4 Chronic or unspecified gastric ulcer with hemorrhage; D62 Acute posthemorrhagic anemia; E87.1 Hypo-osmolality and hyponatremia; Z20.822 Contact with and (suspected) exposure to COVID-19; E87.6 Hypokalemia; I10 Essential (primary) hypertension; G89.29 Other chronic pain; M81.0 Age-related osteoporosis without current pathological fracture; M19.90 Unspecified osteoarthritis, unspecified site; E11.9 Type 2 diabetes mellitus without complications; E78.00 Pure hypercholesterolemia, unspecified; Z87.442 Personal history of urinary calculi; Z88.0 Allergy status to penicillin
CPT/HCPCS: 36415; 43239; 71045; 74177; 80048; 80053; 81001; 82270; 82728; 82948; 83540; 83550; 83735; 83880; 84100; 84443; 84484; 85007; 85014; 85018; 85025; 85027; 86850; 86900; 86901; 86923; 87635; 93005; 94640; 94664; C9113; G0378; J2354; J2405; J2704; J3475; J7030; J7050; P9016; Q9967

== ENCOUNTER → 2022-10-07 | Outpatient (CLI) | payer OTHER ==
[~2022-10-07] MED LIST changes: +ALEN70TA80 PO; +AMLO-258 PO; +ATOR40TA71 PO; +BUSP30TA2 PO; -CALC-1125 PO; -CEPH500B PO; -ESOM20CA31 PO; -FENO54TA6 PO; +GABA-529 PO; -GABA-531 PO; +IRON1CAP28 PO; -LOPE2CAP PO; -LORA0.5T2 PO; -LORA10TA7 PO; -LOVA40TA2 PO; -MELO-108 PO; +MEMA5TAB42 PO; +METF-526 PO; +MONT-39 PO; -OXYB10TA30 PO; +PANT40TA55 PO; -[UNRECOGNIZED DRUG - CODE] PO
== END | disposition home or self-care (01) ==
LOC: OIH 10:14
PROVIDERS: ATTEND Family Medicine
DX: Z13.6 Encounter for screening for cardiovascular disorders (principal); I51.5 Myocardial degeneration
CPT/HCPCS: 75571

== ENCOUNTER 2022-11-08 15:36 | Emergency (ER) | payer MEDICARE ==
[~2022-11-08] VITALS: Ht 152.4 cm; Wt 62.1 kg
[~2022-11-08 15:36] MED LIST changes: -ALEN70TA80 PO; -AMLO-258 PO; -IRON1CAP28 PO; -LISI40TA9 PO; -METF-526 PO; -ONDA4TAB10 PO; -PANT40TA55 PO
[2022-11-08 16:01] LABS: APPEARANCE,URINE CLEAR (CLEAR); BILIRUBIN,URINE NEGATIVE (NEGATIVE); COLOR,URINE LIGHT-YELLOW (YELLOW); GLUCOSE, URINE (UA) NEGATIVE (NEGATIVE); KETONES,URINE NEGATIVE (NEGATIVE); LEUKOCYTE ESTERASE ,URINE NEGATIVE Leu/uL (NEGATIVE); NITRATE,URINE NEGATIVE (NEGATIVE); OCCULT BLOOD,URINE NEGATIVE (NEGATIVE); PH,URINE 6.5 (5.0-8.0); PROTEIN,URINE NEGATIVE (NEGATIVE); UROBILINOGEN,URINE 0.2 mg/dL (0.2-1.0)
[2022-11-08] MEDS ORDERED: ONDANSETRON 4MG INJ ONE (17:46)
[2022-11-08] MEDS ORDERED: ONDANSETRON 4MG INJ IVP ONE (18:00)
[2022-11-08] MEDS ORDERED: 0.9%NACL 1000ML 1,000 ML IV SCH (18:00)
[2022-11-08 18:01] LABS: BASOPHILS % (AUTO) 0.2 % (0.0-5.0); HEMATOCRIT 26.9 % (36-48); LYMPHOCYTES % (AUTO) 25.6 % (21.0-51.0); MEAN CORPUSCULAR HEMOGLOBIN 30.2 pg (27.0-33.0); MEAN CORPUSCULAR HGB CONC 31.2 g/dL (32.0-36.0); MEAN CORPUSCULAR VOLUME 96.8 fL (79-99); MONOCYTES % (AUTO) 7.3 % (3.0-13.0); NEUTROPHILS % (AUTO) 65.5 % (40.0-77.0); PLATELET COUNT (AUTO) 414 K/uL (130-400); RED BLOOD CELL COUNT(AUTO) 2.78 MIL/uL (4.00-5.50); RED CELL DISTRIBUTION WIDTH 15.6 % (11.0-15.5); WHITE BLOOD COUNT (AUTO) 9.4 K/uL (4.8-10.8)
[2022-11-08 18:20] LABS: ALBUMIN 3.4 g/dL (3.5-5.0); CREATININE 0.8 mg/dL (0.5-1.5); POTASSIUM 4.8 mmol/L (3.5-5.1); TOTAL PROTEIN, SERUM 7.4 g/dL (6.0-8.3)
[2022-11-08 20:08] VITALS: BP 143/71
[2022-11-08] MEDS ORDERED: IOHEXOL-350 75 ML VIAL IV ONE (20:08)
== END 2022-11-08 21:23 | disposition home or self-care (01) ==
LOC: EDH 15:36
DX: R11.2 Nausea with vomiting, unspecified (principal); R19.7 Diarrhea, unspecified; R35.0 Frequency of micturition; I10 Essential (primary) hypertension; E11.9 Type 2 diabetes mellitus without complications; E78.00 Pure hypercholesterolemia, unspecified; K21.9 Gastro-esophageal reflux disease without esophagitis; Z79.899 Other long term (current) drug therapy; Z90.49 Acquired absence of other specified parts of digestive tract; Z85.028 Personal history of other malignant neoplasm of stomach; Z88.0 Allergy status to penicillin; Z88.7 Allergy status to serum and vaccine
CPT/HCPCS: 99285; 74177; 96374; 96361; 84484; 80053; 85025; 87040 ×2; 83605; 81003; 36415; 93005; J7030; J2405; Q9967

== ENCOUNTER 2023-02-12 20:11 | Emergency (ER) | payer MEDICARE ==
[~2023-02-12 20:11] MED LIST changes: -ROPI1TAB13 PO; +ROPI1TAB46 PO
[2023-02-12 21:53] LABS: BASOPHILS # (AUTO) 0.02 K/uL (0.00-0.20); BASOPHILS % (AUTO) 0.1 % (0.0-5.0); HEMATOCRIT 26.5 % (36-48); LYMPHOCYTES # (AUTO) 0.9 K/uL (1.0-4.8); LYMPHOCYTES % (AUTO) 6.6 % (21.0-51.0); MEAN CORPUSCULAR HEMOGLOBIN 25.2 pg (27.0-33.0); MEAN CORPUSCULAR HGB CONC 30.6 g/dL (32.0-36.0); MEAN CORPUSCULAR VOLUME 82.6 fL (79-99); MONOCYTES # (AUTO) 1.3 K/uL (0.1-1.0); MONOCYTES % (AUTO) 9.1 % (3.0-13.0); NEUTROPHILS # (AUTO) 11.5 K/uL (1.8-7.7); NEUTROPHILS % (AUTO) 83.5 % (40.0-77.0); PLATELET COUNT (AUTO) 518 K/uL (130-400); RED BLOOD CELL COUNT(AUTO) 3.21 MIL/uL (4.00-5.50); RED CELL DISTRIBUTION WIDTH 24.7 % (11.0-15.5); WHITE BLOOD COUNT (AUTO) 13.8 K/uL (4.8-10.8)
[2023-02-12 22:09] LABS: ALBUMIN 1.8 g/dL (3.5-5.0); BILIRUBIN,TOTAL 0.4 mg/dL (0.2-1.0); CREATININE 0.3 mg/dL (0.5-1.5); TOTAL PROTEIN, SERUM 6.4 g/dL (6.0-8.3)
[2023-02-12] MEDS ORDERED: MORPHINE 2 MG SYG IVP ONE (22:30)
[2023-02-12] MEDS ORDERED: LACTATED RINGERS 1000ML 1,000 ML IV ONE (22:30)
[2023-02-12] MEDS ORDERED: IOHEXOL 350 MG/ML 100ML INFUS..BTL IV ONE (23:06)
[2023-02-13 00:39] LABS: ADD UA MICROSCOPIC YES; APPEARANCE,URINE CLEAR (CLEAR); BILIRUBIN,URINE NEGATIVE (NEGATIVE); COLOR,URINE YELLOW (YELLOW); GLUCOSE, URINE (UA) NEGATIVE (NEGATIVE); KETONES,URINE 60 mg/dL (NEGATIVE); LEUKOCYTE ESTERASE ,URINE NEGATIVE Leu/uL (NEGATIVE); NITRATE,URINE NEGATIVE (NEGATIVE); OCCULT BLOOD,URINE NEGATIVE (NEGATIVE); PH,URINE 6.5 (5.0-8.0); PROTEIN,URINE 30 mg/dL (NEGATIVE)
[2023-02-13 00:40] LABS: MUCUS,URINE RARE LPF (None Seen); SQUAMOUS EPITHELIAL CELL,UR RARE /HPF (0-2)
[2023-02-13 02:16] VITALS: BP 122/82; PULSE 94; RESP 18; O2SAT 97
== END 2023-02-13 02:24 | disposition home or self-care (01) ==
LOC: EDH 20:11
DX: C78.7 Secondary malignant neoplasm of liver and intrahepatic bile duct (principal); E87.1 Hypo-osmolality and hyponatremia; I10 Essential (primary) hypertension; E11.9 Type 2 diabetes mellitus without complications; E78.00 Pure hypercholesterolemia, unspecified; K21.9 Gastro-esophageal reflux disease without esophagitis; Z79.899 Other long term (current) drug therapy; Z85.028 Personal history of other malignant neoplasm of stomach; Z90.49 Acquired absence of other specified parts of digestive tract; Z98.890 Other specified postprocedural states; Z88.0 Allergy status to penicillin; Z88.7 Allergy status to serum and vaccine
CPT/HCPCS: 99285; 74178; 96374; 96361; 71045; 84484; 80053; 83690; 85025; 81001; 36415; 74018; 93005; J7120; J2270 ×2; Q9967